=== PATIENT | female | born 1995 | race Caucasian/White ===

== ENCOUNTER 2020-12-10 22:04 | Outpatient (CLI) | payer OTHER ==
[~2020-12-10 22:04] MED LIST: COLACE 100MG C100 MG PO; IBUPROFEN600 MG PO; PRENATAL VITAM1 EAC8 PO; ZANTAC150 MG PO
== END 2020-12-10 23:57 | disposition home or self-care (01) ==
LOC: GENOP 22:04
DX: O99.891 Other specified diseases and conditions complicating pregnancy (principal); R31.9 Hematuria, unspecified; R10.9 Unspecified abdominal pain; O99.333 Smoking (tobacco) complicating pregnancy, third trimester; F17.210 Nicotine dependence, cigarettes, uncomplicated; Z3A.36 36 weeks gestation of pregnancy
CPT/HCPCS: 81001; G0463

== ENCOUNTER 2020-12-22 01:43 | Inpatient (IN) | payer OTHER ==
[~2020-12-22] VITALS: Ht 157.5 cm; Wt 93.0 kg
[2020-12-22] MEDS ORDERED: PRENATAL VITAM1 EAC8 PO (06:23)
[2020-12-22 06:54] LABS: RED BLOOD COUNT 3.64 M/UL (4.00-5.10); WHITE BLOOD COUNT 10.1 K/UL (4.5-11.0)
[2020-12-22] MEDS ORDERED: IBUPROFEN600 MG PO (12:25)
[2020-12-22] MEDS ORDERED: COLACE 100MG C100 MG PO (12:25)
== END 2020-12-24 11:27 | disposition home or self-care (01) | DRG 807 ==
LOC: GENOP 01:43 → OB 05:07
PROVIDERS: Obstetrics & Gynecology; ADMIT Obstetrics & Gynecology
PROC: 10E0XZZ Delivery of Products of Conception, External Approach (ICD-10-PCS; principal; 2020-12-22)
PROC: 10907ZC Drainage of Amniotic Fluid, Therapeutic from Products of Conception, Via Natural or Artificial Opening (ICD-10-PCS; 2020-12-22)
PROC: 4A1HXCZ Monitoring of Products of Conception, Cardiac Rate, External Approach (ICD-10-PCS; 2020-12-22)
PROC: 00HU33Z Insertion of Infusion Device into Spinal Canal, Percutaneous Approach (ICD-10-PCS; 2020-12-22)
PROC: 3E0R3BZ Introduction of Anesthetic Agent into Spinal Canal, Percutaneous Approach (ICD-10-PCS; 2020-12-22)
DX: O13.4 Gestational [pregnancy-induced] hypertension without significant proteinuria, complicating childbirth (principal); Z37.0 Single live birth; O72.1 Other immediate postpartum hemorrhage; Z20.822 Contact with and (suspected) exposure to COVID-19; O69.81X0 Labor and delivery complicated by cord around neck, without compression, not applicable or unspecified; Z3A.38 38 weeks gestation of pregnancy
CPT/HCPCS: 51702; 81001; 85014; 85018; 85025; 90715; J0595; J2405; J2590; J7120; Q0177